=== PATIENT | female | born 1945 | race Caucasian/White ===

== ENCOUNTER 2017-01-19 08:45 | Outpatient (CLI) | payer MEDICARE, OTHER | END 2017-01-19 08:46 | disposition home or self-care (01) | DX: R31.9 Hematuria, unspecified (principal) ==

== ENCOUNTER 2017-06-11 08:00 | Outpatient (CLI) | payer MEDICARE, OTHER ==
[2017-06-11 19:31] LABS: BASOPHILS # (AUTO) 0.1 10^3/uL (0.0-0.1); BASOPHILS % (AUTO) 1.9 %; EOSINOPHILS # (AUTO) 0.3 10^3/uL (0.0-0.7); EOSINOPHILS % (AUTO) 4.8 %; HCT - HEMATOCRIT 38.1 % (37.0-47.0); LYMPHOCYTES # (AUTO) 1.2 10^3/uL (1.5-3.5); LYMPHOCYTES % (AUTO) 21.6 %; MEAN CORPUSCULAR HEMOGLOBIN 32.3 pg (27.0-31.0); MEAN PLATELET VOLUME 10.2 fL (7.9-10.8); MONOCYTES # (AUTO) 0.4 10^3/uL (0.0-1.0); MONOCYTES % (AUTO) 6.7 %; NEUTROPHILS # (AUTO) 3.7 10^3/uL (1.5-6.6); NUCLEATED RED BLOOD CELLS AUTO 0.1 /100WBC; RED BLOOD COUNT 4.01 10^6/uL (4.20-5.40); UNCORRECTED WHITE BLOOD COUNT 5.6 x10^3/uL; WHITE BLOOD COUNT 5.6 x10^3/uL (4.8-10.8)
== END 2017-06-11 08:01 | disposition home or self-care (01) ==
LOC: LAB.WCP 08:00
PROVIDERS: ATTEND Family Medicine
DX: E03.9 Hypothyroidism, unspecified (principal); R23.8 Other skin changes
CPT/HCPCS: 36415; 84443; 85025

== ENCOUNTER 2017-11-11 08:17 | Outpatient (CLI) | payer MEDICARE, OTHER ==
--- NOTE | 2017-11-12 13:27 | DEXA Report ---
DEXA SCAN: 11/11/2017 CLINICAL INDICATION: Postmenopausal osteoporosis. TECHNIQUE: Dual energy x-ray absorptiometry (DXA) was performed on a [employer] system. Regions measured are the AP spine, femoral neck, and, if needed, forearm. COMPARISON: 06/05/2016. In accordance with the International Society for Clinical Densitometry (ISCD) guidelines, data from previous exams may be reanalyzed using current recommendations and techniques. This is done to allow a more accurate basis for comparison with the current study. FINDINGS The data for the lumbar spine is as follows: REGION BMD (g/cm/cm) T-SCORE Z-SCORE L1 0.899 -1.9 -0.1 L2 0.904 -2.5 -0.7 L3 1.092 -0.9 0.9 L4 1.060 -1.2 0.7 L1-L4 0.994 -1.5 0.3 NOTE: All evaluable vertebrae are used for classification. The data for the hip is as follows: REGION BMD (g/cm/cm) T-SCORE Z-SCORE Neck 0.652 -2.8 -0.9 TOTAL 0.611 -3.1 -1.5 NOTE: The femoral neck or total proximal femur, whichever is lowest, is used for classification. DEXA RESULTS SUMMARY: Spine SCAN DATE AGE BMD T-SCORE BMD CHANGE VS BASELINE BMD CHANGE VS PREVIOUS 11[age]11/2017 [age] 0[age]994 -- 0.038* 4.0* 06/05/2016 [age] 0[age]956 -- -- -- * Denotes significant change at the 95% confidence level. Denotes dissimilar scan types or analysis methods. DEXA RESULTS SUMMARY: Total hip SCAN DATE AGE BMD T-SCORE BMD CHANGE VS BASELINE BMD CHANGE VS PREVIOUS 11/11/2017 72.3 0.611 -- -0.007 -1.1 06/05/2016 70.8 0.618 -- -- -- * Denotes significant change at the 95% confidence level. Denotes dissimilar scan types or analysis methods. IMPRESSION 1. THE WHO CLASSIFICATION BASED ON THE INTERNATIONAL REFERENCE STANDARD IS OSTEOPOROSIS. FRACTURE RISK IS HIGH. 2. THERE HAS BEEN STATISTICALLY SIGNIFICANT INTERVAL INCREASE IN BONE MINERAL DENSITY OF THE LUMBAR SPINE FROM 06/05/2016. NO STATISTICALLY SIGNIFICANT INTERVAL CHANGE IN BONE MINERAL DENSITY OF THE LEFT HIP IN THE INTERVAL. RECOMMENDATION: Patients with diagnosis of osteoporosis or osteopenia should have regular bone mineral density assessment. For those eligible for Medicare, routine testing is allowed once every 2 years. Testing frequency can be increased for patients who have rapidly progressing disease or for those who are receiving medical therapy to restore bone mass. COMMENT: World Health Organization (WHO) definitions for osteoporosis and osteopenia: NORMAL BMD: T-score at 1.0 or higher, fracture risk is low. OSTEOPENIA BMD: T-score between 1.0 and -2.5, fracture risk is increased. OSTEOPOROSIS BMD: T-score at 2.5 or lower, fracture risk high. National Osteoporosis Foundation recommends: 1. Obtain adequate dietary calcium (at least 1200 mg per day) and vitamin D (400 -800 international units per day). 2. Participate, as appropriate, in regular weightbearing and muscle- strengthening exercise. 3. Avoid tobacco use and reduce alcohol and caffeine intake. 4. For more detailed information see the website at www.NOF.org. TD: 11/11/2017 13:04 GREGORIO
== END 2017-11-11 08:18 | disposition home or self-care (01) ==
LOC: DI 08:17
PROVIDERS: ATTEND Family Medicine
DX: M81.0 Age-related osteoporosis without current pathological fracture (principal)
CPT/HCPCS: 77080

== ENCOUNTER 2017-11-11 08:18 | Outpatient (CLI) | payer MEDICARE, OTHER ==
--- NOTE | 2017-11-11 12:43 | XRAY Report ---
THREE VIEW RIGHT KNEE: 11/11/2017 CLINICAL INDICATION: Pain. FINDINGS: AP, lateral, sunrise views of the right knee demonstrate no evidence of fracture or dislocation. The joint spaces are preserved. No effusion is present. IMPRESSION: NORMAL RIGHT KNEE. TD: 11/11/2017 12:41
--- NOTE | 2017-11-11 12:47 | XRAY Report ---
TWO VIEW THORACIC SPINE: 11/11/2017 CLINICAL INDICATION: Pain. FINDINGS: Frontal and lateral views of the thoracic spine demonstrate mild degenerative disk disease. There is no evidence of acute fracture. No paraspinal hematoma is present. Left subclavian pacemaker is noted. IMPRESSION: MILD DEGENERATIVE CHANGES. TD: 11/11/2017 12:46
== END 2017-11-11 08:19 | disposition home or self-care (01) ==
LOC: DI 08:18
PROVIDERS: ATTEND Family Medicine
DX: M51.34 Other intervertebral disc degeneration, thoracic region (principal); M25.561 Pain in right knee; M81.0 Age-related osteoporosis without current pathological fracture
CPT/HCPCS: 72070; 77080

== ENCOUNTER 2017-12-10 15:09 | Outpatient (CLI) | payer MEDICARE, OTHER | END 2017-12-10 15:10 | disposition home or self-care (01) | LOC: LAB.WCP 15:09 | PROVIDERS: ATTEND Family Medicine | DX: E03.9 Hypothyroidism, unspecified (principal) | CPT/HCPCS: 36415; 84443 ==

== ENCOUNTER 2018-03-04 09:11 | Outpatient (CLI) | payer MEDICARE, OTHER ==
--- NOTE | 2018-03-04 14:56 | CT Report ---
Procedure Date: 03/04/2018 Accession Number: [id number] / [id number] Procedure: CT - Lower Extremity Right W/O CPT Code: FULL RESULT: EXAM: RIGHT KNEE CT WITHOUT CONTRAST EXAM DATE: 03/04/2018 09:43 AM. CLINICAL HISTORY: Right knee pain, right greater than left after a fall 15 years ago. COMPARISON: None. TECHNIQUE: Thin-section axial images were acquired of the knee without contrast. Post-processing: Coronal and sagittal reformats. Other: None. In accordance with CT protocol optimization, one or more of the following dose reduction techniques were utilized for this exam: automated exposure control, adjustment of mA and/or KV based on patient size, or use of iterative reconstructive technique. FINDINGS: Bones: There is moderate generalized osteopenia. There are no visible fractures. Joints: There are small medial and lateral compartment osteophytes. The patellofemoral compartment appears unremarkable. The findings are consistent with mild osteoarthritis. There is a small joint effusion. Musculature: Normal. No fatty atrophy. Other: No Bakers cyst. No soft tissue swelling. IMPRESSION: 1. No visible fracture. 2. Moderate generalized osteopenia. 3. Mild medial and lateral compartment osteoarthritis with a joint effusion. RADIA
== END 2018-03-04 09:12 | disposition home or self-care (01) ==
LOC: DI 09:11
PROVIDERS: ATTEND Orthopaedic Surgery
DX: M17.11 Unilateral primary osteoarthritis, right knee (principal); M85.80 Other specified disorders of bone density and structure, unspecified site; M25.461 Effusion, right knee

== ENCOUNTER 2019-05-25 12:56 | Outpatient (CLI) | payer MEDICARE, OTHER ==
--- NOTE | 2019-05-26 10:28 | XRAY Report ---
Reason: COUGH Procedure Date: 05/25/2019 Accession Number: [id number] / [id number] Procedure: XRN - Chest 2 View X-Ray CPT Code: 84961 FULL RESULT: EXAM: CHEST RADIOGRAPHY EXAM DATE: 05/25/2019 01:06 PM. CLINICAL HISTORY: COUGH. COMPARISON: THORACIC SPINE 2 VIEW 11/11/2017 8:29 AM CHEST 2 VIEW PA/LAT 01/12/2017 8:51 AM. TECHNIQUE: 2 views. FINDINGS: Lungs/Pleura: No focal pneumonia or edema. No pleural effusion or pneumothorax. Mediastinum: Heart size not enlarged. No mediastinal shift. Other: Stable left pacemaker. IMPRESSION: No acute process seen in the chest. RADIA
== END 2019-05-25 12:57 | disposition home or self-care (01) ==
LOC: DI.N 12:56
PROVIDERS: ATTEND Internal Medicine
DX: R05 Cough (principal)
CPT/HCPCS: 71046

== ENCOUNTER 2019-08-09 09:37 | Outpatient (CLI) | payer MEDICARE, OTHER ==
--- NOTE | 2019-08-10 08:41 | CT Report ---
Reason: TINNITUS, HEADACHE, AMNESIA Procedure Date: 08/09/2019 Accession Number: [id number] / [id number] Procedure: CT - HEAD WO CPT Code: Final Report FULL RESULT: EXAM: CT HEAD EXAM DATE: 08/09/2019 10:02 AM. CLINICAL HISTORY: TINNITUS, HEADACHE, AMNESIA. COMPARISON: None. TECHNIQUE: Multiaxial CT images were obtained from the foramen magnum to the vertex. Reformats: Sagittal and coronal. IV contrast: None. In accordance with CT protocol optimization, one or more of the following dose reduction techniques were utilized for this exam: automated exposure control, adjustment of mA and/or KV based on patient size, or use of iterative reconstructive technique. FINDINGS: Parenchyma: Mild age-appropriate subcortical and periventricular white matter changes. No intraparenchymal hemorrhage. No evidence of mass, midline shift, or CT findings of infarction. Epperson-white differentiation is distinct. Extraaxial Spaces: Normal for age. No subdural or epidural collections identified. Ventricles: Normal in size and position. Sinuses and Orbits: Bilateral ethmoidal mucosal thickening. The other visualized paranasal sinuses and mastoid air cells are clear. Bones: No evidence of fracture or calvarial defect. IMPRESSION: 1. No acute process. 2. Mild sinus mucosal thickening in the ethmoidal distribution. RADIA
== END 2019-08-09 09:38 | disposition home or self-care (01) ==
LOC: DI 09:37
PROVIDERS: ATTEND Internal Medicine
DX: H93.19 Tinnitus, unspecified ear (principal); R51 Headache; R41.3 Other amnesia
CPT/HCPCS: 70450

== ENCOUNTER 2019-11-02 15:35 | Outpatient (CLI) | payer MEDICARE, OTHER ==
[2019-11-02 18:31] LABS: CALCIUM 9.3 mg/dL (8.5-10.3)
== END 2019-11-02 23:59 | disposition home or self-care (01) ==
LOC: LAB.N 15:35
PROVIDERS: ATTEND Internal Medicine
DX: Z79.899 Other long term (current) drug therapy (principal)
CPT/HCPCS: 36415; 80048

== ENCOUNTER 2019-11-04 09:50 | Outpatient (CLI) | payer MEDICARE, OTHER ==
[2019-11-04] MEDS ORDERED: IOVERSOL 320 100 ML VIAL IVP ONE ×2 (09:58→10:39)
--- NOTE | 2019-11-04 13:43 | CT Report ---
Reason: HEADACHE, PER NEUROLOGIST HEAD CT W AND WO CONTRAST Procedure Date: 11/04/2019 Accession Number: [id number] / [id number] Procedure: CT - HEAD W/WO CPT Code: Final Report FULL RESULT: EXAM: CT HEAD WITHOUT AND WITH IV CONTRAST EXAM DATE: 11/04/2019 10:33 AM. CLINICAL HISTORY: Headache. COMPARISON: HEAD W/O 08/09/2019 10:00 AM. TECHNIQUE: Multiaxial CT images were obtained from the foramen magnum to the vertex, before and after intravenous contrast administration. Reformats: Sagittal and coronal. IV contrast: 100 mL Optiray 320. In accordance with CT protocol optimization, one or more of the following dose reduction techniques were utilized for this exam: automated exposure control, adjustment of mA and/or KV based on patient size, or use of iterative reconstructive technique. FINDINGS: Parenchyma: No intraparenchymal hemorrhage. No evidence of mass, midline shift, or CT findings of infarction. Epperson-white differentiation is distinct. Stable mild generalized age-related cerebral volume loss. No abnormal enhancement. No evidence for intracranial enhancing or space-occupying lesion. Extraaxial Spaces: Normal for age. No subdural or epidural collections identified. Ventricles: Normal in size and position. Sinuses and Orbits: No gross orbital mass or proptosis. Mild to moderate bilateral ethmoid mucosal thickening. Right frontal sinus posterior mucosal thickening. Progressive opacity of the left lateral sphenoid sinus recess consistent with sinusitis progression. Clear mastoids as far as visualized. Bones: No evidence of fracture or calvarial defect. Other: None. IMPRESSION: 1. Stable aged appearance of the brain, no evidence for acute intracranial abnormality. 2. No abnormal enhancement. 3. Sinusitis. RADIA
== END 2019-11-04 09:51 | disposition home or self-care (01) ==
LOC: DI 09:50
PROVIDERS: ATTEND Internal Medicine
DX: J32.9 Chronic sinusitis, unspecified (principal); R51 Headache
CPT/HCPCS: 70470; Q9967

== ENCOUNTER 2020-06-19 14:49 | Outpatient (CLI) | payer MEDICARE, OTHER ==
--- NOTE | 2020-06-19 15:22 | XRAY Report ---
PROCEDURE: Lumbar Spine 2 View INDICATIONS: SACRAL PAIN TECHNIQUE: 2 views of the lumbar spine were acquired. COMPARISON: None. FINDINGS: Bones: 5 [id number] vertebrae are present. There is normal bony alignment. There is moderate w edging of L3, indeterminate in acuity. Multilevel disc space narrowing and endplate osteophytes. Face t hypertrophy throughout the mid and lower lumbar spine. No Suspicious bony lesions. Soft tissues: Overlying bowel gas pattern is normal. No suspicious soft tissue calcifications. IMPRESSION: 1. Multilevel degenerative disc and facet disease. 2. Age-indeterminate L3 compression fracture; further assessment with MRI is recommended. Reviewed by: Tesfaye Keller MD on 06/19/2020 3:21 PM PDT Approved by: Tesfaye Keller MD on 06/19/2020 3:21 PM PDT Station ID: [id number]
--- NOTE | 2020-06-19 15:23 | XRAY Report ---
PROCEDURE: Pelvis 1 View INDICATIONS: SACRAL PAIN TECHNIQUE: 1 view(s) of the pelvis acquired. COMPARISON: None. FINDINGS: Bones: No fractures or dislocations. No suspicious bony lesions. Mild periarticular osteophyte for mation at the bilateral hip joints. Soft tissues: Visualized bowel gas pattern is normal. No suspicious soft tissue calcifications. IMPRESSION: 1. Bilateral hip osteoarthritis. 2. No acute fracture. No osseous lesion. If symptoms and/or clinical suspicion for pathology continue , further assessment with repeat plain films, or advanced imaging (e.g., CT, MRI, or bone scan) is re commended for further assessment. Reviewed by: Tesfaye Keller MD on 06/19/2020 3:22 PM PDT Approved by: Tesfaye Keller MD on 06/19/2020 3:22 PM PDT Station ID: [id number]
== END 2020-06-19 14:50 | disposition home or self-care (01) ==
LOC: DI 14:49
PROVIDERS: ATTEND Internal Medicine
DX: M53.3 Sacrococcygeal disorders, not elsewhere classified (principal); G89.29 Other chronic pain; M51.36 Other intervertebral disc degeneration, lumbar region; M48.56XA Collapsed vertebra, not elsewhere classified, lumbar region, initial encounter for fracture; M16.0 Bilateral primary osteoarthritis of hip
CPT/HCPCS: 72100; 72170

== ENCOUNTER 2020-08-23 09:18 | Outpatient (CLI) | payer MEDICARE, OTHER ==
--- NOTE | 2020-08-23 16:10 | CT Report ---
PROCEDURE: LUMBAR SPINE WO INDICATIONS: PERSISTENT SACRAL PAIN, RECENT L3 FRACTURE TECHNIQUE: Noncontrast 3 mm thick sections acquired from the T12 level to the sacrum. Sagittal and coronal refo rmats were constructed. For radiation dose reduction, the following was used: automated exposure co ntrol, adjustment of mA and/or kV according to patient size. COMPARISON: X-ray lumbar spine 06/19/2020 FINDINGS: Image quality: Excellent. Bones: There is there is superior endplate deformity with approximately 64% height loss at L3. This is unchanged compared to 06/19/2020. There is trace anterolisthesis of L3 on L4. No suspicious osseous lesions. Partially bridging anterior osteophyte is present at L2-3 with nonbridging anterior osteoph ytes at L4 and L5. Moderate to severe disc space narrowing is present at T11-12, L4-3-4, L5-S1, moderate throughout the remainder of the lumbar spine. Mild disc bulges are present at L2-3, L3-4, L4-5 and L5-S1. There is s evere spinal stenosis with canal compression at L2-3, L3-4, L4-5, mild stenosis L5-S1. Prominent mult ilevel facet and ligamentum flavum arthropathy are present. There is moderate to severe right and mod erate left foraminal narrowing L2-3, moderate bilateral L3-4, moderate to severe left and mild-to-mod erate right L4-5, moderate to severe right L5-S1.. Soft tissues: No retroperitoneal masses or hematomas. Visualized aorta is normal in caliber. IMPRESSION: 1. 64% loss of L3 of indeterminate age. However, it is unchanged compared to 06/19/2020. 2. Multilevel spinal stenosis most severe at L2-3, L3-4 and L4-5 secondary to disc bulge with contrib uting effect of facet/ligamentum flavum arthropathy. 3. Multilevel foraminal narrowing most severe at L4-5 and L5-S1 secondary to facet arthropathy. Reviewed by: Balbina Layton MD on 08/23/2020 4:09 PM PST Approved by: Balbina Layton MD on 08/23/2020 4:09 PM PST Station ID: [id number]
== END 2020-08-23 09:19 | disposition home or self-care (01) ==
LOC: DI 09:18
PROVIDERS: ATTEND Internal Medicine
DX: M47.816 Spondylosis without myelopathy or radiculopathy, lumbar region (principal); M47.817 Spondylosis without myelopathy or radiculopathy, lumbosacral region; M51.35 Other intervertebral disc degeneration, thoracolumbar region; M51.36 Other intervertebral disc degeneration, lumbar region; M48.061 Spinal stenosis, lumbar region without neurogenic claudication; M51.37 Other intervertebral disc degeneration, lumbosacral region; M48.07 Spinal stenosis, lumbosacral region
CPT/HCPCS: 72131

== ENCOUNTER 2020-08-23 09:19 | Outpatient (CLI) | payer MEDICARE, OTHER ==
--- NOTE | 2020-08-23 10:23 | XRAY Report ---
PROCEDURE: Cervical Spine 2 View INDICATIONS: NECK PAIN TECHNIQUE: 5 view(s) of the cervical spine were acquired. COMPARISON: None. FINDINGS: Bones: No acute fracture. No vertebral body height loss. Anterior osteophytes are seen at multiple le vels. There is facet arthrosis at C7-T1 with grade 1 anterolisthesis. C5-6 and C6-7 have disc space n arrowing. Soft tissues: No prevertebral soft tissue swelling. IMPRESSION: 1. Degenerative disc disease at C5-6 and C6-7. 2. Facet arthrosis at C7-T1 with grade 1 anterolisthesis. 3. No acute abnormality. Reviewed by: Eric Massey on 08/23/2020 10:21 AM [facility] Approved by: Eric Massey on 08/23/2020 10:21 AM [facility] Station ID: [id number]
== END 2020-08-23 09:20 | disposition home or self-care (01) ==
LOC: DI 09:19
PROVIDERS: ATTEND Internal Medicine
DX: M50.322 Other cervical disc degeneration at C5-C6 level (principal); M47.813 Spondylosis without myelopathy or radiculopathy, cervicothoracic region; M43.13 Spondylolisthesis, cervicothoracic region; M47.816 Spondylosis without myelopathy or radiculopathy, lumbar region; M47.817 Spondylosis without myelopathy or radiculopathy, lumbosacral region; M51.35 Other intervertebral disc degeneration, thoracolumbar region; M51.36 Other intervertebral disc degeneration, lumbar region; M48.061 Spinal stenosis, lumbar region without neurogenic claudication; M51.37 Other intervertebral disc degeneration, lumbosacral region; M48.07 Spinal stenosis, lumbosacral region
CPT/HCPCS: 72131

== ENCOUNTER 2021-11-20 08:23 | Outpatient (CLI) | payer MEDICARE, OTHER ==
--- NOTE | 2021-11-20 15:37 | CT Report ---
PROCEDURE: PELVIS WO INDICATIONS: SACRAL PAIN TECHNIQUE: Noncontrast 3 mm axial sections acquired through the bony pelvis, with coronal and sagittal reformatt ing. For radiation dose reduction, the following was used: automated exposure control, adjustment of mA and/or kV according to patient size. COMPARISON: None. FINDINGS: Image quality: Excellent. Bones: There is osteopenia. Osteoarthritic changes are noted in bilateral hip joints, sacroiliac octavio nts and symphysis pubis. No evidence of avascular necrosis of femoral head. No bony erosion or ankylo sis is seen in sacroiliac joints. No cortical disruption or suspicious intraosseous lesion is seen. D egenerative disc disease in visualized lower lumbar spine is seen. Soft tissues: There is gross muscle or soft tissue abnormality. No abnormal soft tissue calcificatio ns. No pelvic free fluid of free air. No abnormal bowel wall thickening. Bladder wall thickness is wi thin normal limits. No inguinal hernia or lymphadenopathy. IMPRESSION: 1. No gross acute pelvic fracture or dislocation. No gross CT evidence of sacral insufficiency fractu re. Mild osteopenia. 2. Osteoarthritic changes throughout bony pelvis. No evidence of avascular necrosis of femoral head. No ankylosis or bony erosion is seen in bilateral sacroiliac joints. 3. No gross pelvic soft tissue abnormality. No abnormal soft tissue calcifications. Reviewed by: Hiren Chavez MD on 11/20/2021 3:36 PM PST Approved by: Hiren Chavez MD on 11/20/2021 3:36 PM PST Station ID: [id number]
== END 2021-11-20 08:24 | disposition home or self-care (01) ==
LOC: DI 08:23
PROVIDERS: ATTEND Internal Medicine
DX: M54.18 Radiculopathy, sacral and sacrococcygeal region (principal); M85.88 Other specified disorders of bone density and structure, other site; M19.09 Primary osteoarthritis, other specified site

== ENCOUNTER 2022-09-20 16:14 | Emergency (ER) | payer MEDICARE, OTHER ==
--- NOTE | 2022-09-20 16:23 | ED Physician Documentation ---
PD HPI Fall - Stated complaint Stated Complaint: DIZZY,NECK PX,FALL - History obtained from History obtained from: Patient, Family ( reports independent information that the patient has some chronic mild dementia so not fully accurate on timeframe details. Has had general weakness and some confusion for a week or so. Has had 3 falls in the past 2 days, and was holding frozen peas to her head earlier today. Has some JAIMES.) - History of Present Illness Mechanism of injury: Lost balance Fall distance: Standing position Where injury occurred: Home Timing - onset: Today, Yesterday Injury(ies) location: Head. No: Neck, Chest, Abdomen Associated symptoms: AMS ( reports more confused and forgetful than u celestine.). No: LOC Worsens with: Movement Contributing factors: No: Anticoagulated, Intoxicated Similar symptoms before: Has not had sx before Recently seen: Not recently seen Review of Systems Constitutional: denies: Fever, Chills Nose: denies: Congestion Throat: denies: Sore throat Cardiac: denies: Chest pain / pressure Respiratory: reports: Cough (for several days). denies: Wheezing GI: denies: Vomiting, Diarrhea Skin: denies: Abrasion (s), Laceration (s) Neurologic: reports: Confused (today), Altered mental status (slow to answer questions today), Headache, Head injury. denies: Focal weakness, Near syncope PD PAST MEDICAL HISTORY - Past Medical History Cardiovascular: Hypertension, Arrhythmia Neuro: Dementia Musculoskeletal: None - Past Surgical History Cardiovascular: Pacemaker - Allergies Allergies/Adverse Reactions: Allergies Allergy/AdvReac Type Severity Reaction Status Date / Time Penicillins Allergy Unknown Verified 09/20/22 16:38 - Living Situation Living Situation: reports: With spouse/s.o. Living Arrangement: reports: At home - Social History Does the pt smoke?: No Does the pt drink ETOH?: No Does the pt have substance abuse?: No - Family History Family history: reports: Non contributory PD ED PE NORMAL - Vitals Vital signs reviewed: Yes - General General: No acute distress, Well developed/nourished. No: Alert and oriented X 3 (to person) - HEENT HEENT: PERRL, EOMI, Other (tender right parietal area without deformity. ) - Neck Neck: Supple, no meningeal sign, No bony TTP (there is mild tenderness right trapezius muscle side of neck. ), No adenopathy - Cardiac Cardiac: RRR, No murmur - Respiratory Respiratory: Clear bilaterally, Other (pacemaker noted left chestwall. ) - Abdomen Abdomen: Soft, Non tender - Back Back: No CVA TTP, No spinal TTP - Derm Derm: Normal color, Warm and dry - Extremities Extremities: Normal ROM s pain, No edema, No calf tenderness / cord - Neuro Neuro: java technical architect 2-12 intact, No motor deficit, No sensory deficit Eye Opening: Spontaneous Motor: Obeys Commands Verbal: Confused GCS Score: 14 - Psych Psych: No: Normal affect (flat) Results - Vitals Vitals: Vital Signs - 24 hr 09/20/22 16:30 Temperature 36.4 C L Heart Rate 65 Respiratory 17 Rate Blood Pressure 127/70 O2 Saturation 97 Oxygen O2 Source Room air - Labs Labs: Laboratory Tests 09/20/22 09/20/22 17:12 17:12 WBC 7.1 RBC 3.83 L Hgb 12.2 Hct 36.2 L MCV 94.5 MCH 31.9 H MCHC 33.7 RDW 12.3 Plt Count 284 MPV 10.2 Neut # (Auto) 4.0 Lymph # (Auto) 2.0 [place] # (Auto) 0.6 Eos # (Auto) 0.3 Baso # (Auto) 0.1 Absolute Nucleated RBC 0.00 Nucleated RBC % 0.0 Sodium 140 Potassium 3.7 Chloride 104 Carbon Dioxide 26 Anion Gap 10.0 BUN 18 Creatinine 1.0 Estimated GFR (MDRD) 54 L Glucose 82 Calcium 9.1 Magnesium 2.2 Total Bilirubin 0.4 AST 23 ALT 16 Alkaline Phosphatase 82 Total Protein 7.3 Albumin 4.1 Globulin 3.2 Albumin/Globulin Ratio 1.3 Lipase 39 - Rads (name of study) cervical CT Radiology: Prelim report reviewed (arthritic changes, no fractures), See rad report head CT Radiology: Prelim report reviewed, EMP read indepedently (large right frontoparietal subdural with 2.1 cm thickness, and 1.4 cm midline shift. ), See rad report chest xray Radiology: Prelim report reviewed (no acute infiltrates), See rad report PD Medical Decision Making - ED course Complexity details: reviewed results, considered differential (Has been describes generalized weakness for the past week. No viral type symptoms. She has had balance problem and fell 3 times the last 2 days. Is having headache, confusion, ataxia today. Not on anticoagulants.), d/w patient, d/w family (spouse), d/w talent consultant ([facility]. ) Reviewed Lab Results: The patient was sent for a prompt CT of the head and neck given her symptoms. The CT scan is showing a sizable subdural hematoma in the right frontoparietal area with a maximum thickness of 2.1 cm and a midline shift of 1.4 centimeters. We are still doing labs and will give her some IV fluids to look for other potential acute illnesses that may have led to the weakness and subsequent falls. At this point her vital signs are good. She is awake and alert with normal airway and no focal deficits. I talked with herself and her and they are both consenting for transfer to the trauma center. Social Determinants of Health: The patient does have history of some mild dementia so is a little forgetful and not clear on time but her states she typically performs her own ADLs and is independent at home otherwise per ED course: The patient is given some IV fluids to ensure she has good hydration. She is not on blood thinners. Basic labs are drawn and still pending at this time. Chest x-ray is clear. Her respiratory panel is obtained but not resulted as yet. The patient will fly by [facility] due to the immediacy of transport needed. - Critical Care Time(min): 50 Time Includes: Direct patient care, Reassess patient, Document care, Coordinate care Data interpretation: Labs, Pulse ox, CXR Departure - Departure Disposition: 02 Transfer Acute Care Hosp Clinical Impression: Confusion, Ataxia, History of recent fall, Subdural hematoma, acute Headache Qualifiers: Headache type: unspecified Headache chronicity pattern: acute headache Intractability: not intractable Qualified Code(s): R51.9 - Headache, unspecified Condition: Stable Record reviewed to determine appropriate education?: Yes
[2022-09-20 16:33] VITALS: BP 127/70
--- NOTE | 2022-09-20 17:13 | CT Report ---
PROCEDURE: CT brain without contrast INDICATIONS: fall, headache TECHNIQUE: Noncontrast 4.5 mm thick angled axial sections acquired from the foramen magnum to the vertex. For r adiation dose reduction, the following was used: automated exposure control, adjustment of mA and/or kV according to patient size. COMPARISON: 11/04/2019 CT brain FINDINGS: Image quality: Excellent. CSF spaces: Ventricular system is displaced left . Effacement of the right lateral ventricle, and pro minence of the left lateral ventricle temporal horn. No current transependymal migration of CSF Brain: There is an acute right-sided subdural hematoma with swirling of blood products measuring up to 2.1 cm in thickness resulting in 1.4 cm midline shift. No evidence of parenchymal hemorrhage. Smal ler left parafalcine subdural hemorrhage measures 2 mm in thickness. Atherosclerotic vascular calcifi cation Skull and face: Calvarium and visualized facial bones are intact, without suspicious lesions. Sinuses: Sphenoid and ethmoid mucosal thickening. Debris noted in the right external auditory canal IMPRESSION: Large acute right subdural hematoma measures 2.1 cm in thickness results in 1.4 cm midline shift. No parenchymal hemorrhage. Prominence of the left lateral ventricle. No evidence of transependymal migration of CSF, currently Note: Critical results were discussed with the patient's ER physician at 4:05 PM [place] time on 09/20/2022 Reviewed by: Robel Barth MD on 09/20/2022 4:11 PM [facility] Approved by: Robel Barth MD on 09/20/2022 4:11 PM [facility] Station ID: [id number]
--- NOTE | 2022-09-20 17:14 | CT Report ---
PROCEDURE: CT cervical spine without contrast INDICATIONS: fall recent, neck pain right TECHNIQUE: Noncontrast 3 mm thick sections acquired from the skull base to the T4 level. Sagittal and coronal r eformats were then constructed. For radiation dose reduction, the following was used: automated exp osure control, adjustment of mA and/or kV according to patient size. COMPARISON: None. FINDINGS: Image quality: Excellent. Bones: No fractures or dislocations. Visualized superior ribs are intact. Multilevel degenerative disc space and narrowing and mild hypertrophic uncovertebral joints result in mild to moderate centra l stenosis in the mid cervical spine. No evidence of fracture or traumatic malalignment Soft tissues: Prevertebral soft tissues are normal in thickness. No paravertebral hematomas. No ap ical pneumothoraces. IMPRESSION: Multilevel degenerative disc disease and arthropathy without fracture or traumatic malalignment Reviewed by: Robel Barth MD on 09/20/2022 4:12 PM [facility] Approved by: Robel Barth MD on 09/20/2022 4:12 PM [facility] Station ID: [id number]
--- NOTE | 2022-09-20 17:17 | XRAY Report ---
PROCEDURE: Chest 1 View X-Ray INDICATIONS: cough, weakness TECHNIQUE: One view of the chest was acquired. COMPARISON: Dual-chamber left-sided pacemaker present. Surgical clips in left axilla FINDINGS: Surgical changes and devices: None. Lungs and pleura: No pleural effusions or pneumothorax. Lungs are clear. Mediastinum: Mediastinal contours appear normal. Heart size is normal. Atherosclerotic vascular ca lcification noted in the aortic arch. Bones and chest wall: No suspicious bony lesions. Overlying soft tissues appear unremarkable. IMPRESSION: No acute cardiopulmonary findings Reviewed by: Robel Barth MD on 09/20/2022 4:16 PM [place] Approved by: Robel Barth MD on 09/20/2022 4:16 PM [facility] Station ID: [id number]
[2022-09-20 17:18] LABS: BASOPHILS # (AUTO) 0.1 10^3/uL (0.0-0.1); BASOPHILS % (AUTO) 1.5 %; EOSINOPHILS # (AUTO) 0.3 10^3/uL (0.0-0.7); EOSINOPHILS % (AUTO) 4.3 %; HCT - HEMATOCRIT 36.2 % (37.0-47.0); HGB - HEMOGLOBIN 12.2 g/dL (12.0-16.0); LYMPHOCYTES % (AUTO) 28.6 %; MEAN CORPUSCULAR HEMOGLOBIN 31.9 pg (27.0-31.0); MEAN CORPUSCULAR HGB CONC 33.7 g/dL (32.0-36.0); MEAN CORPUSCULAR VOLUME 94.5 fL (81.0-99.0); MEAN PLATELET VOLUME 10.2 fL (7.9-10.8); MONOCYTES # (AUTO) 0.6 10^3/uL (0.0-1.0); NEUTROPHILS % (AUTO) 56.3 %; PLT - PLATELET COUNT 284 10^3/uL (130-450); RED BLOOD COUNT 3.83 10^6/uL (4.20-5.40); RED CELL DISTRIBUTION WIDTH 12.3 % (12.0-15.0); WHITE BLOOD COUNT 7.1 x10^3/uL (4.8-10.8)
[2022-09-20 17:32] LABS: INR 0.9 (0.8-1.2); PT - PROTHROMBIN TIME 9.9 secs (9.9-12.6)
[2022-09-20 17:33] LABS: ALBUMIN 4.1 g/dL (3.2-5.5); ALBUMIN/GLOBULIN RATIO 1.3 (1.0-2.2); BILIRUBIN,TOTAL 0.4 mg/dL (0.2-1.0); CALCIUM 9.1 mg/dL (8.5-10.3); MAGNESIUM 2.2 mg/dL (1.7-2.8); POTASSIUM 3.7 mmol/L (3.5-5.0); TOTAL PROTEIN 7.3 g/dL (6.7-8.2)
[2022-09-20] MEDS ORDERED: ACETAMINOPHEN 1,000 MG/100 ML 1,000 MG/100 ML BAG IV ONE (17:43)
[2022-09-20] MEDS ORDERED: SODIUM CHLORIDE 0.9% 1,000 ML IV STA (17:43)
[2022-09-20 18:17] LABS: B. PARAPERTUSSIS- RESP PCR PAN NOT DETECTED; B. PERTUSSIS- RESP PCR PANEL NOT DETECTED; C. PNEUMONIAE- RESP PCR PANEL NOT DETECTED; CORONAVIRUS 229E-RESP PCR NOT DETECTED; CORONAVIRUS HKU1-RESP PCR NOT DETECTED; CORONAVIRUS NL63-RESP PCR NOT DETECTED; CORONAVIRUS OC43-RESP PCR NOT DETECTED; HUMAN METAPNEUMOVIRUS NOT DETECTED; INFLUENZA A- RESP PCR PANEL NOT DETECTED; INFLUENZA B - RESP PCR PANEL NOT DETECTED; M. PNEUMONIAE- RESP PCR PANEL NOT DETECTED; PARAINFLUENZA VIRUS 1 NOT DETECTED; PARAINFLUENZA VIRUS 2 NOT DETECTED; PARAINFLUENZA VIRUS 3 NOT DETECTED; PARAINFLUENZA VIRUS 4 NOT DETECTED; RHINOVIRUS/ENTEROVIRUS NOT DETECTED; RSV- RESP PCR PANEL NOT DETECTED; SARS-CoV-2 -RESP PCR PANEL NOT DETECTED
== END 2022-09-20 18:16 | disposition short-term general hospital (02) ==
LOC: ED 16:14
DX: S06.5X0A Traumatic subdural hemorrhage without loss of consciousness, initial encounter (principal); W19.XXXA Unspecified fall, initial encounter; R51.9 Headache, unspecified; Z91.81 History of falling; I10 Essential (primary) hypertension; Z20.822 Contact with and (suspected) exposure to COVID-19
CPT/HCPCS: 36415; 80053; 83690; 83735; 84443; 85025; 85610; 85651; 87633; 99285; 99291

== ENCOUNTER 2022-11-23 16:25 | Emergency (ER) | payer MEDICARE, OTHER ==
[2022-11-23 16:58] LABS: BASOPHILS # (AUTO) 0.1 10^3/uL (0.0-0.1); BASOPHILS % (AUTO) 1.1 %; EOSINOPHILS # (AUTO) 0.2 10^3/uL (0.0-0.7); EOSINOPHILS % (AUTO) 2.8 %; HCT - HEMATOCRIT 37.4 % (37.0-47.0); LYMPHOCYTES # (AUTO) 1.8 10^3/uL (1.5-3.5); LYMPHOCYTES % (AUTO) 27.6 %; MEAN CORPUSCULAR HEMOGLOBIN 30.5 pg (27.0-31.0); MEAN CORPUSCULAR HGB CONC 32.1 g/dL (32.0-36.0); MEAN CORPUSCULAR VOLUME 94.9 fL (81.0-99.0); MEAN PLATELET VOLUME 10.2 fL (7.9-10.8); MONOCYTES # (AUTO) 0.6 10^3/uL (0.0-1.0); MONOCYTES % (AUTO) 8.6 %; NEUTROPHILS # (AUTO) 3.9 10^3/uL (1.5-6.6); NEUTROPHILS % (AUTO) 59.7 %; PLT - PLATELET COUNT 232 10^3/uL (130-450); RED BLOOD COUNT 3.94 10^6/uL (4.20-5.40); RED CELL DISTRIBUTION WIDTH 12.3 % (12.0-15.0); WHITE BLOOD COUNT 6.5 x10^3/uL (4.8-10.8)
[2022-11-23 17:06] LABS: CALCIUM 8.8 mg/dL (8.5-10.3); CREATININE 0.9 mg/dL (0.4-1.0); POTASSIUM 5.1 mmol/L (3.5-5.0)
--- NOTE | 2022-11-23 17:17 | ED Physician Documentation ---
PD HPI FOCAL NEURO - Stated complaint Stated Complaint: SLURRED SPEACH/WOBBLY - Chief complaint Chief Complaint: Neuro - History obtained from History obtained from: Patient, Family - Additional information Additional information: 77-year-old woman with history of pacemaker, dementia. She presents with her long-term partner. Back in September she had a large subdural hematoma which was evacuated via craniotomy at [facility]. Over the last couple of days her partner has noticed that she has been slurring her speech on occasion and dragging both of her feet. No recent headaches or recurrent trauma. She was on Eliquis prior to all of this but has not restarted it. PD PAST MEDICAL HISTORY - Past Medical History Cardiovascular: Hypertension, Arrhythmia Respiratory: None Neuro: Dementia, Seizure disorder, Other Endocrine/Autoimmune: HyPOthyroidism STRUCTURAL STEEL ENGINEER: Breast cancer HEENT: None Musculoskeletal: None - Past Surgical History Past Surgical History: Yes Cardiovascular: Pacemaker Neuro: Craniotomy - Present Medications Home Medications: Ambulatory Orders Medication Instructions Recorded Confirmed Alendronate Sodium 70 mg PO Q7D 11/23/22 11/23/22 Atorvastatin [Lipitor] 20 mg PO QPM 11/23/22 11/23/[address] [Depakote Dr] 125 mg PO TID 11/23/22 11/23/22 Letrozole 2.5 mg ORAL DAILY 11/23/22 11/23/22 Levetiracetam [Keppra] 750 mg PO BID 11/23/22 11/23/22 Levothyroxine Sodium [Synthroid] 150 mcg PO DAILY 11/23/22 11/23/22 traZODone [Desyrel] 50 mg PO HS 11/23/22 11/23/22 - Allergies Allergies/Adverse Reactions: Allergies Allergy/AdvReac Type Severity Reaction Status Date / Time Penicillins Allergy Unknown Verified 11/23/22 16:41 - Social History Does the pt smoke?: No Smoking Status: Never smoker Does the pt drink ETOH?: No Does the pt have substance abuse?: No - Immunizations Immunizations are current?: Yes - POLST Patient has POLST: No PD ED PE NORMAL - Vitals Vital signs reviewed: Yes - General General: Alert and oriented X 3, Other (She is alert and oriented to person and place but not time or events. 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, No motor deficit, No sensory deficit, Normal speech Eye Opening: Spontaneous Motor: Obeys Commands Verbal: Confused GCS Score: 14 NIHSS - Time Time: 17:10 - Level of Consciousness Level of consciousness: (0) Alert, Keenly responsive LOC Questions: (1) Answers one Q correctly LOC Commands: (0) Performs both correctly - Gaze Best Gaze: (0) Normal - Visual Visual: (0) No loss - Facial Palsy Facial Palsy: (0) Normal, symmetrical movement - Motor Arms (both separate) Motor Arm (right): (0) No drift Motor Arm (left): (0) No drift - Motor Legs (both separate) Motor Leg (right): (0) No drift Motor Leg (left): (0) No drift - Limb Ataxia Limb Ataxia: (0) Absent - Sensory Sensory: (0) Normal - Best Language Best Language: (0) No aphasia - Dysarthria Dysarthria: (0) Normal - Extinction and Inattention (formally neg Extinction and inattention: (0) No abnormality - Total Score/Results Total Score/Result: 1 Results - Vitals Vitals: Vital Signs - 24 hr 11/23/22 11/23/22 11/23/22 16:35 17:48 18:00 Temperature 36.2 C L Heart Rate 59 L 76 60 Respiratory 16 14 16 Rate Blood Pressure 116/59 L 115/94 H 116/79 O2 Saturation 100 100 100 Oxygen O2 Source Room air - Labs Labs: Laboratory Tests 11/23/22 11/23/22 11/23/22 16:50 16:50 16:50 WBC 6.5 RBC 3.94 L Hgb 12.0 Hct 37.4 MCV 94.9 MCH 30.5 MCHC 32.1 RDW 12.3 Plt Count 232 MPV 10.2 Neut # (Auto) 3.9 Lymph # (Auto) 1.8 [place] # (Auto) 0.6 Eos # (Auto) 0.2 Baso # (Auto) 0.1 Absolute Nucleated RBC 0.00 Nucleated RBC % 0.0 PT 13.4 H INR 1.2 Sodium 135 Potassium 5.1 H Chloride 100 L Carbon Dioxide 27 Anion Gap 8.0 BUN 30 H Creatinine 0.9 Estimated GFR (MDRD) 61 L Glucose 91 Calcium 8.8 Urine Color Urine Clarity Urine pH Ur Specific [place] Urine Protein Urine Glucose (UA) Urine Ketones Urine Occult Blood Urine Nitrite Urine Bilirubin Urine Urobilinogen Ur Leukocyte Esterase Ur Microscopic Review Urine Culture Comments 11/23/22 17:48 WBC RBC Hgb Hct MCV MCH MCHC RDW Plt Count MPV Neut # (Auto) Lymph # (Auto) [place] # (Auto) Eos # (Auto) Baso # (Auto) Absolute Nucleated RBC Nucleated RBC % PT INR Sodium Potassium Chloride Carbon Dioxide Anion Gap BUN Creatinine Estimated GFR (MDRD) Glucose Calcium Urine Color YELLOW Urine Clarity CLEAR Urine pH 7.0 Ur Specific [place] 1.015 Urine Protein NEGATIVE Urine Glucose (UA) NEGATIVE Urine Ketones NEGATIVE Urine Occult Blood NEGATIVE Urine Nitrite NEGATIVE Urine Bilirubin NEGATIVE Urine Urobilinogen 0.2 (NORMAL) Ur Leukocyte Esterase NEGATIVE Ur Microscopic Review NOT INDICATED Urine Culture Comments NOT INDICATED - Rads (name of study) CT of the head without contrast Relevant Findings:: Final report received, EMP independent interpretation of test PD Medical Decision Making - ED course ED course: 77-year-old woman presents with her partner for concerns of slurred speech and dragging her feet while she is walking. She had a recent subdural hemorrhage. CT of the head here shows improvement and postoperative changes without anything looking acute or recent. CBC reviewed and normal. INR normal. BMP reviewed and shows very mild hyperkalemia with elevated BUN new from prior values. Urinalysis was normal. Discussed with patient and partner at bedside. Patient's partner notes that she has not been drinking much water and the elevated BUN and mild neurologic symptoms may be due to this. Her examination does not show anything too concerning other than dementia. She was ambulatory in the department without any ataxia or obvious slowness. Not needing any devices to help her walk. Increased oral fluids were advised. Departure - Departure Disposition: 01 Home, Self Care Clinical Impression: Dehydration, Subdural hematoma Condition: Good Record reviewed to determine appropriate education?: Yes Instructions: ED Dehydration Comments: As discussed, there is really no significant blood left under the subdural area on the right, just was left postoperatively. Her blood work is suggestive of dehydration, I suspect if you push oral fluids and will get much better. Call your doctor to arrange a follow-up appointment, make the next available appointment. In the interim, return anytime if worse or if new symptoms develop.
--- NOTE | 2022-11-23 17:20 | CT Report ---
PROCEDURE: HEAD WO INDICATIONS: slurred speech, recent sdh TECHNIQUE: Noncontrast 4.5 mm thick angled axial sections acquired from the foramen magnum to the vertex. For r adiation dose reduction, the following was used: automated exposure control, adjustment of mA and/or kV according to patient size. COMPARISON: 09/20/2022 FINDINGS: Image quality: Excellent. CSF spaces: Basal cisterns are patent. No extra-axial fluid collections. Ventricles are normal in size and shape. Brain: No midline shift. Resolving right frontal subdural hematoma measuring 6 mm compared to the p rior study when it measured 1.8 cm. Resolving blood products are noted. The ventricles are enlarged w ith underlying cerebellar atrophy. Encephalomalacia adjacent to the area of subdural hematoma likely related to prior trauma. White matter hypodensity in the right parietal lobe also likely related to e ncephalomalacia from prior trauma. Midline shift seen on the prior study has resolved. Skull and face: Calvarium demonstrates changes of right frontal/parietal cranioplasty. Sinuses: Vis ualized sinuses and mastoids are clear. IMPRESSION: 1. Resolving right frontal subdural hematoma with areas of encephalomalacia as described above. 2. Cerebellar atrophy with resultant ventriculomegaly. Reviewed by: Eric Massey on 11/23/2022 4:19 PM [facility] Approved by: Eric Massey on 11/23/2022 4:19 PM [facility] Station ID: [id number]
[2022-11-23 17:21] LABS: INR 1.2 (0.8-1.2); PT - PROTHROMBIN TIME 13.4 secs (9.9-12.6)
[2022-11-23 17:54] LABS: BILIRUBIN,URINE NEGATIVE (NEGATIVE); GLUCOSE, URINE (UA) NEGATIVE (NEGATIVE); KETONES,URINE (UA) NEGATIVE (NEGATIVE); LEUKOCYTE ESTERASE, URINE NEGATIVE (NEGATIVE); NITRITE,URINE NEGATIVE (NEGATIVE); OCCULT BLOOD,URINE NEGATIVE (NEGATIVE); PROTEIN,URINE NEGATIVE (NEGATIVE); UROBILINOGEN,URINE 0.2 (NORMAL) E.U./dL (NORMAL)
[2022-11-23 18:01] LABS: CLARITY,URINE CLEAR (CLEAR)
[2022-11-23 18:10] VITALS: BP 116/79
== END 2022-11-23 18:32 | disposition home or self-care (01) ==
LOC: ED 16:25
DX: S06.5XAA Traumatic subdural hemorrhage with loss of consciousness status unknown, initial encounter (principal); X58.XXXA Exposure to other specified factors, initial encounter; E86.0 Dehydration; I10 Essential (primary) hypertension; G40.909 Epilepsy, unspecified, not intractable, without status epilepticus; F03.90 Unspecified dementia, unspecified severity, without behavioral disturbance, psychotic disturbance, mood disturbance, and anxiety; E03.9 Hypothyroidism, unspecified; Z95.0 Presence of cardiac pacemaker; Z79.01 Long term (current) use of anticoagulants; Z79.899 Other long term (current) drug therapy
CPT/HCPCS: 36415; 80048; 81001; 81003; 85025; 85610; 87086; 99284

== ENCOUNTER 2022-12-09 15:38 | Outpatient (CLI) | payer MEDICARE, OTHER | END 2022-12-09 15:39 | disposition home or self-care (01) | LOC: LAB 15:38 | PROVIDERS: ATTEND Internal Medicine | DX: I48.91 Unspecified atrial fibrillation (principal); R94.4 Abnormal results of kidney function studies; R41.82 Altered mental status, unspecified; Z91.89 Other specified personal risk factors, not elsewhere classified | CPT/HCPCS: 36415; 82140 ==